=== PATIENT | female | born 1975 | race Caucasian/White ===

== ENCOUNTER 2024-01-27 21:21 | Emergency (ER) | payer OTHER, SELFPAY ==
[2024-01-27] MEDS ORDERED: Sodium Chloride 0.9% 1,000 ML ONE (21:32)
[2024-01-27 22:08] LABS: #Basophils 0.1 thou/uL (0.0-0.2); #Lymphocytes 2.4 thou/uL (1.20-3.40); #Monocytes 0.4 thou/uL (0.11-0.59); %Basophils 0.7 % (0.0-1.0); %Eosinophils 0.3 % (0.0-10.0); %Lymphocytes 18.8 % (21.0-51.0); %Monocytes 3.3 % (0.0-10.0); %Neutrophils 76.9 % (42.0-75.0); Hematocrit 43.8 % (36.0-47.0); Hemoglobin 14.6 g/dL (12.0-16.0); Mean Corpuscular HGB CONC 33.3 g/dL (32.0-36.0); Mean Corpuscular Volume 87.2 fl (78.0-98.0); Mean Platelet Volume 8.9 fL (7.4-10.4); Platelet Count 371 10x3/uL (130-400); RBC Distribution Width 11.6 % (11.5-14.5); Red Blood Cell (RBC) Count 5.03 mill/uL (4.20-5.40)
[2024-01-27] MEDS ORDERED: Ondansetron PF 4 MG/2 ML Vial ONE (22:14)
[2024-01-27 22:16] LABS: ALT (SGPT) 22 U/L (8-55); AST (SGOT) 23 U/L (5-34); Albumin 3.6 g/dL (3.5-5.0); Alkaline Phosphatase 114 U/L (40-110); Anion Gap 18 mmol/L (10-20); BUN (Urea Nitrogen) 9 mg/dL (7.0-18.7); Bilirubin, Total Less than 0.2 mg/dL (0.2-1.2); Calc. Creatinine Clearance 0 mL/min (70-130); Calcium 9.6 mg/dL (7.8-10.44); Carbon Dioxide 22 mmol/L (22-29); Chloride 99 mmol/L (98-107); Estimated GFR 65; Globulin 4.7 g/dL (2.4-3.5); Glucose 384 mg/dL (70-105); Magnesium 1.7 mg/dL (1.6-2.6); Potassium 4.3 mmol/L (3.5-5.1); Protein, Total 8.3 g/dL (6.0-8.3); Sodium 135 mmol/L (136-145)
[2024-01-27] MEDS ORDERED: Acetaminophen 500 MG TAB ONE (23:46)
[2024-01-27] MEDS ORDERED: Ketorolac Tromethamine 30 MG (1 mL) VIAL ONE (23:47)
== END 2024-01-27 23:59 | disposition home or self-care (01) ==
LOC: NAV ERS 21:21 → EEVIPCON 21:21 → NAV ERS 23:59
DX: E11.65 Type 2 diabetes mellitus with hyperglycemia (principal); R51.9 Headache, unspecified; E78.5 Hyperlipidemia, unspecified; F17.200 Nicotine dependence, unspecified, uncomplicated; Z79.84 Long term (current) use of oral hypoglycemic drugs; Z79.899 Other long term (current) drug therapy
CPT/HCPCS: 36416; 80053; 82010; 83735; 85025; 96374; 96375; J1885; J2405; J7030

== ENCOUNTER 2025-02-04 19:35 | Emergency (ER) | payer OTHER ==
[2025-02-04] MEDS ORDERED: Orphenadrine Citrate 60 MG/2 ML VIAL ONE (20:04)
[2025-02-04 20:16] LABS: #Basophils 0.1 thou/uL (0.0-0.2); #Eosinophils 0.1 thou/uL (0.0-0.7); #Lymphocytes 4.4 thou/uL (1.20-3.40); #Monocytes 0.5 thou/uL (0.11-0.59); #Neutrophils 4.9 thou/uL (1.40-6.50); %Basophils 1.1 % (0.0-1.0); %Eosinophils 1.3 % (0.0-10.0); %Lymphocytes 43.9 % (21.0-51.0); %Monocytes 5.0 % (0.0-10.0); %Neutrophils 48.8 % (42.0-75.0); Hematocrit 40.9 % (36.0-47.0); Hemoglobin 13.8 g/dL (12.0-16.0); Mean Corpuscular Hemoglobin 29.6 pg (27.0-31.0); Mean Corpuscular Volume 87.4 fl (78.0-98.0); Platelet Count 356 10x3/uL (130-400); Red Blood Cell (RBC) Count 4.68 mill/uL (4.20-5.40); White Blood Cell (WBC) Count 10.0 10x3/uL (4.8-10.8)
[2025-02-04 20:30] LABS: ALT (SGPT) 23 U/L (Less than 34); AST (SGOT) 18 U/L (11-34); Albumin 4.5 g/dL (3.1-4.5); Alkaline Phosphatase 59 U/L (40-110); Anion Gap 18 mmol/L (10-20); BUN (Urea Nitrogen) 15 mg/dL (7.0-18.7); Bilirubin, Total 0.3 mg/dL (0.3-1.2); Calc. Creatinine Clearance 0 mL/min (70-130); Calcium 9.9 mg/dL (7.8-10.44); Carbon Dioxide 22 mmol/L (22-29); Chloride 101 mmol/L (98-107); Globulin 3.1 g/dL (2.4-3.5); Glucose 200 mg/dL (70-105); Potassium 4.2 mmol/L (3.5-5.1); Sodium 137 mmol/L (136-145)
== END 2025-02-04 21:10 ==
LOC: NAV ERS 19:35
DX: M54.2 Cervicalgia (principal); M54.50 Low back pain, unspecified; M62.838 Other muscle spasm; E11.9 Type 2 diabetes mellitus without complications; I10 Essential (primary) hypertension; E78.5 Hyperlipidemia, unspecified; F17.210 Nicotine dependence, cigarettes, uncomplicated; Z79.84 Long term (current) use of oral hypoglycemic drugs; Z79.85 Long-term (current) use of injectable non-insulin antidiabetic drugs; Z79.899 Other long term (current) drug therapy
CPT/HCPCS: 70450; 72125; 80053; 85025; 96374; 96375; J2360

== ENCOUNTER → 2025-03-08 | Emergency (ER) | payer OTHER ==
[~2025-03-08] MED LIST: Bisacodyl 10 MG SUPP ONE; Cyclobenzaprine 10 MG TAB ONE
== END ==
LOC: NAV ERS 14:24
DX: H01.006 Unspecified blepharitis left eye, unspecified eyelid (principal); M54.2 Cervicalgia; J32.0 Chronic maxillary sinusitis; B97.89 Other viral agents as the cause of diseases classified elsewhere; E11.40 Type 2 diabetes mellitus with diabetic neuropathy, unspecified; E78.5 Hyperlipidemia, unspecified; F17.210 Nicotine dependence, cigarettes, uncomplicated; Z79.84 Long term (current) use of oral hypoglycemic drugs; Z79.899 Other long term (current) drug therapy
CPT/HCPCS: 99284